=== PATIENT | female | born 1990 | race Two or more races ===

== ENCOUNTER 2020-03-13 21:29 | Emergency (ER) | payer OTHER ==
[~2020-03-13] VITALS: Ht 152.4 cm; Wt 74.8 kg
[2020-03-13 21:44] VITALS: BP 124/71
[2020-03-14] MEDS ORDERED: HYDROcodone-ACET 5/325MG TAB PO ONE
== END 2020-03-14 01:12 | disposition home or self-care (01) ==
LOC: ER 21:34
DX: M54.5 Low back pain (principal); M54.6 Pain in thoracic spine; M54.2 Cervicalgia; M62.830 Muscle spasm of back; V43.52XA Car driver injured in collision with other type car in traffic accident, initial encounter; Y93.89 Activity, other specified; Y92.488 Other paved roadways as the place of occurrence of the external cause; Y99.8 Other external cause status
CPT/HCPCS: 70450; 71250; 72125; 74176